=== PATIENT | male | born 1965 | race African-American/Black ===

== ENCOUNTER 2024-05-23 11:48 | Inpatient (IN) | payer BC, OTHER ==
[~2024-05-23] VITALS: Ht 180.3 cm; Wt 88.1 kg
[2024-05-23 12:15] VITALS: PULSE 114; RESP 38; O2SAT 100
[2024-05-23] MEDS: SODIUM CHLORIDE 0.9% 1,000 ML IV ONE ×2 (12:22→15:10)
[2024-05-23 12:24] LABS: Basophils # (auto) 0 10 ^3/uL (0-0.2); Basophils % (auto) 0.2 % (0.0-2.0); Eosinophils # (auto) 0 10 ^3/uL (0-0.8); Hemoglobin 9.2 g/dL (13.5-17.5); Lymphocytes # (auto) 0.7 10 ^3/uL (0.4-5.4); Monocytes # (auto) 1.1 10 ^3/uL (0-1.3); Red Blood Cells 3.16 10^6/uL (4.5-5.90)
[2024-05-23 12:25] LABS: Chloride 91 mmol/L (98-107); Hematocrit 31.3 % (41.0-53.0); Lymphocytes % (auto) 3.3 % (10.0-50.0); Mean Corpuscular Hgb Conc. 29.3 g/dL (32.0-36.0); Mean Corpuscular Volume 99.1 fL (80.0-100.0); Monocytes % (auto) 5.2 % (0.0-12.0); Neutrophils # (auto) 19.9 10 ^3/uL (1.6-8.6); Neutrophils % (auto) 91.3 % (37.0-80.0); Platelet Count (auto) 518 10^3/uL (140-450); Red Cell Distribution Width 15.6 % (11.8-14.3); Sodium 125 mmol/L (136-145); White Blood Cell 21.8 10^3/uL (4.4-10.8)
[2024-05-23 12:26] LABS: Anion Gap 24.00001 (5-15)
[2024-05-23] MEDS: InsuLIN REG 1unit/0.01ml Soln (100units/ml) IV ONE (12:26)
[2024-05-23 12:27] LABS: Calcium 9.1 mg/dL (8.7-10.4)
[2024-05-23 12:31] LABS: BUN/Creatinine Ratio 11.4 (10.0-20.0); Blood Urea Nitrogen 30 mg/dL (9-23)
[2024-05-23 12:33] LABS: Urine Bacteria None Seen /hpf (None Seen)
[2024-05-23] MEDS ORDERED: DEXTROSE (50%) 50ML SYRG IV PRN ×2 (12:45→17:00)
[2024-05-23 12:47] LABS: Carbon Dioxide < 10 mmol/L (20-30); Glucose 832 mg/dL (74-106); Potassium 7.3 mmol/L (3.5-5.1)
[2024-05-23 12:47] LABS: Urine Blood Negative /uL (Negative); Urine Clarity Clear (Clear); Urine Color Colorless (Yellow); Urine Protein, UAD TRACE (Negative); Urine Specific Gravity 1.019 (1.001-1.035); Urine Urobilinogen Normal (Negative); Urine WBC <1 /hpf (0 - 3)
[2024-05-23] MEDS: SODIUM CHLORIDE 0.9% 2,000 ML IV ONE (13:04)
[2024-05-23] MEDS: SODIUM BICARB 8.4% 50Meq/50ml SYR Vial IV ONE (13:06)
[2024-05-23] MEDS: INSULIN LANTUS (GLARGINE) 1 /0.01ml (100units/ml) SC ONE ×2 (13:06→17:00)
[2024-05-23] MEDS: FUROSEMIDE 40 MG/4 ML VIAL IV ONE (13:07)
[2024-05-23] MEDS: INSULIN DRIP 100 UNIT/100ML 100 ML IV SCH ×3 (13:30→22:23)
[2024-05-23] MEDS: ACCU-CHEK COMFORT CURVE STRIP VI SCH ×2 (13:30→17:54)
[2024-05-23 16:23] LABS: Base Excess -14.4 mmol/L (-2.0-3.0)
[2024-05-23] MEDS ORDERED: NITROGLYCERIN 0.4 MG SL TAB SL PRN (17:00)
[2024-05-23] MEDS ORDERED: SODIUM CHLORIDE 0.9% 1,000 ML IV SCH ×2 (17:00→21:00)
[2024-05-23] MEDS ORDERED: VANCOMYCIN PER PHARMACY 0 MG IV SCH (17:00)
[2024-05-23] MEDS ORDERED: DOCUSATE SOD 100 MG CAP PO PRN (17:00)
[2024-05-23 17:19] LABS: Chloride 99 mmol/L (98-107); Potassium 4.4 mmol/L (3.5-5.1)
[2024-05-23 17:20] LABS: Anion Gap 22 (5-15); Calcium 8.4 mg/dL (8.7-10.4); Carbon Dioxide 12 mmol/L (20-30)
[2024-05-23 17:25] LABS: Blood Urea Nitrogen 25 mg/dL (9-23)
[2024-05-23 17:32] LABS: Sodium 133 mmol/L (136-145)
[2024-05-23 17:36] LABS: Glucose 670 mg/dL (74-106)
[2024-05-23] MEDS: ENOXAPARIN SOD 40 MG/0.4 ML SYRINGE SC SCH (17:53)
[2024-05-23] MEDS: VANCOMYCIN 1GM/200ML 200 ML IV ONE (17:53)
[2024-05-23 17:55] LABS: % Iron Saturation 7.7 % (20-55)
[2024-05-23 17:57] LABS: Phosphorus 4.1 mg/dL (2.4-5.1)
[2024-05-23 18:38] LABS: Ferritin 345.6 ng/mL (22-322)
[2024-05-23 18:40] LABS: Erythrocyte Sedimentation Rate 109 mm/hr (0-20)
[2024-05-23 18:43] LABS: Lactic Acid w/Reflex 3.1 mmol/L (0.4-2.0)
[2024-05-23 19:54] VITALS: PULSE 99; RESP 20; O2SAT 96
[2024-05-23] MEDS: ONDANSETRON HCL 4 MG/2 ML VIAL IV PRN (20:28)
[2024-05-23] MEDS: CEFEPIME 2GM/50ML NS 50 ML IV SCH (22:09)
[2024-05-23] MEDS: SODIUM CHLORIDE 0.9% 1,000 ML IV SCH (23:05)
[2024-05-23 23:19] LABS: Chloride 106 mmol/L (98-107); Potassium 3.6 mmol/L (3.5-5.1); Sodium 139 mmol/L (136-145)
[2024-05-23 23:20] LABS: Anion Gap 6 (5-15); Carbon Dioxide 27 mmol/L (20-30)
[2024-05-23 23:21] LABS: Calcium 8.5 mg/dL (8.7-10.4)
[2024-05-23 23:25] LABS: BUN/Creatinine Ratio 11.9 (10.0-20.0); Blood Urea Nitrogen 24 mg/dL (9-23); Glucose 278 mg/dL (74-106)
[2024-05-24] MEDS: D5W/LACTATED RINGERS 1,000 ML IV ONE (01:50)
[2024-05-24 04:30] LABS: Lactic Acid w/Reflex 2.1 mmol/L (0.4-2.0)
[2024-05-24 05:00] LABS: Basophils # (auto) 0 10 ^3/uL (0-0.2); Basophils % (auto) 0.1 % (0.0-2.0); Eosinophils # (auto) 0 10 ^3/uL (0-0.8); Hematocrit 25.6 % (41.0-53.0); Hemoglobin 8.5 g/dL (13.5-17.5); Lymphocytes # (auto) 0.6 10 ^3/uL (0.4-5.4); Mean Corpuscular Hemoglobin 28.9 pg (28.0-32.0); Mean Corpuscular Hgb Conc. 33.2 g/dL (32.0-36.0); Monocytes # (auto) 1.1 10 ^3/uL (0-1.3); Monocytes % (auto) 7.1 % (0.0-12.0); Neutrophils # (auto) 14.2 10 ^3/uL (1.6-8.6); Neutrophils % (auto) 88.8 % (37.0-80.0); Platelet Count (auto) 434 10^3/uL (140-450); Red Blood Cells 2.94 10^6/uL (4.5-5.90); Red Cell Distribution Width 14.8 % (11.8-14.3)
[2024-05-24 05:09] LABS: Albumin 3.1 g/dL (3.2-4.8); Alkaline Phosphatase 68 U/L (46-116); Anion Gap 5 (5-15); Aspartate Aminotransferase 11 U/L (13-40); BUN/Creatinine Ratio 12.6 (10.0-20.0); Bilirubin, Total 0.3 mg/dL (0.2-1.0); Blood Urea Nitrogen 22 mg/dL (9-23); Calcium 8.7 mg/dL (8.7-10.4); Carbon Dioxide 28 mmol/L (20-30); Chloride 108 mmol/L (98-107); Glucose 207 mg/dL (74-106); Potassium 3.8 mmol/L (3.5-5.1); Sodium 141 mmol/L (136-145); Total Protein 6.9 g/dL (5.7-8.2)
[2024-05-24 05:12] LABS: Alanine Aminotransferase < 9 U/L (7-40)
[2024-05-24] MEDS ORDERED: DEXTROSE (50%) 50ML SYRG IV PRN (06:00)
[2024-05-24 07:35] VITALS: PULSE 88; RESP 18; O2SAT 97
[2024-05-24] MEDS: ACCU-CHEK COMFORT CURVE STRIP VI SCH (08:01)
[2024-05-24] MEDS: InsuLIN REG 1unit/0.01ml Soln (100units/ml) SC SCH (08:03)
[2024-05-24] MEDS: INSULIN LANTUS (GLARGINE) 1 /0.01ml (100units/ml) SC SCH (11:33)
[2024-05-24] MEDS: METOCLOPRAMIDE HCL 5MG/ml INJ 2ml VIAL IV ONE (11:37)
[2024-05-24 11:42] LABS: Chloride 108 mmol/L (98-107); Potassium 3.9 mmol/L (3.5-5.1); Sodium 140 mmol/L (136-145)
[2024-05-24 11:43] LABS: Anion Gap 3 (5-15); Calcium 8.6 mg/dL (8.7-10.4); Carbon Dioxide 29 mmol/L (20-30)
[2024-05-24 11:48] LABS: BUN/Creatinine Ratio 13.9 (10.0-20.0); Blood Urea Nitrogen 20 mg/dL (9-23); Glucose 241 mg/dL (74-106)
[2024-05-24] MEDS: MORPHINE SULFATE INJ 2 MG/ml SYRG IV PRN (12:34)
[2024-05-24 13:57] VITALS: BP 146/78; PULSE 112; RESP 19; TEMP 98.6; O2SAT 90
[2024-05-24 14:45] VITALS: BP 147/79; PULSE 110; RESP 16; TEMP 98; O2SAT 90; O2SAT 92
[2024-05-24 16:44] VITALS: BP 143/83; PULSE 109; RESP 16; TEMP 98.1; O2SAT 98
[2024-05-24] MEDS: VANCOMYCIN 1GM/200ML 200 ML IV SCH (17:00)
[2024-05-24 21:00] VITALS: BP 117/73; PULSE 95; RESP 20; TEMP 99.2; O2SAT 96
[2024-05-25] VITALS (8 sets, daily range): BP systolic 116–159; BP diastolic 73–94; PULSE 86–117; RESP 18–20; TEMP 98.3–99.3; O2SAT 92–100
[2024-05-25 07:08] LABS: Basophils # (auto) 0 10 ^3/uL (0-0.2); Eosinophils # (auto) 0 10 ^3/uL (0-0.8); Eosinophils % (auto) 0.4 % (0.0-7.0); Hemoglobin 8.2 g/dL (13.5-17.5); Monocytes # (auto) 0.9 10 ^3/uL (0-1.3); Monocytes % (auto) 7.6 % (0.0-12.0); Neutrophils # (auto) 9.5 10 ^3/uL (1.6-8.6); Neutrophils % (auto) 83.1 % (37.0-80.0)
[2024-05-25 07:11] LABS: Basophils % (auto) 0.1 % (0.0-2.0); Hematocrit 24.4 % (41.0-53.0); Lymphocytes % (auto) 8.8 % (10.0-50.0); Mean Corpuscular Hemoglobin 29.4 pg (28.0-32.0); Mean Corpuscular Hgb Conc. 33.7 g/dL (32.0-36.0); Mean Corpuscular Volume 87.3 fL (80.0-100.0); Platelet Count (auto) 415 10^3/uL (140-450); Red Cell Distribution Width 14.9 % (11.8-14.3); White Blood Cell 11.4 10^3/uL (4.4-10.8)
[2024-05-25] MEDS: CEFEPIME 2GM/50ML NS 50 ML IV SCH (19:22)
[2024-05-26] VITALS (9 sets, daily range): BP systolic 135–160; BP diastolic 65–89; PULSE 11–117; RESP 16–19; TEMP 97.8–100.3; O2SAT 94–100
[2024-05-26 06:36] LABS: Anion Gap 3 (5-15); Carbon Dioxide 33 mmol/L (20-30); Chloride 101 mmol/L (98-107); Potassium 3.2 mmol/L (3.5-5.1); Sodium 137 mmol/L (136-145)
[2024-05-26 06:38] LABS: Calcium 8.7 mg/dL (8.7-10.4)
[2024-05-26 06:42] LABS: BUN/Creatinine Ratio 7.6 (10.0-20.0)
[2024-05-26 06:46] LABS: Blood Urea Nitrogen 7 mg/dL (9-23); Glucose 121 mg/dL (74-106)
[2024-05-26 06:54] LABS: Basophils # (auto) 0 10 ^3/uL (0-0.2); Basophils % (auto) 0.2 % (0.0-2.0); Eosinophils # (auto) 0 10 ^3/uL (0-0.8); Eosinophils % (auto) 0.3 % (0.0-7.0); Lymphocytes # (auto) 0.9 10 ^3/uL (0.4-5.4); Monocytes # (auto) 0.7 10 ^3/uL (0-1.3)
[2024-05-26 06:56] LABS: Hematocrit 26.6 % (41.0-53.0); Lymphocytes % (auto) 7.3 % (10.0-50.0); Mean Corpuscular Hemoglobin 29.2 pg (28.0-32.0); Mean Corpuscular Hgb Conc. 33.7 g/dL (32.0-36.0); Mean Corpuscular Volume 86.5 fL (80.0-100.0); Monocytes % (auto) 5.9 % (0.0-12.0); Neutrophils # (auto) 10.3 10 ^3/uL (1.6-8.6); Neutrophils % (auto) 86.3 % (37.0-80.0); Platelet Count (auto) 468 10^3/uL (140-450); Red Blood Cells 3.07 10^6/uL (4.5-5.90); Red Cell Distribution Width 14.6 % (11.8-14.3); White Blood Cell 11.9 10^3/uL (4.4-10.8)
[2024-05-26] MEDS: POTASSIUM CHL 20 Meq TABLET PO ONE (10:09)
[2024-05-26] MEDS ORDERED: HYDROcodone-ACET 5/325MG TAB PO PRN (10:30)
[2024-05-26 10:34] LABS: Folate (Folic Acid) 9.34 ng/mL (>5.38)
[2024-05-26] MEDS ORDERED: DEXTROSE (50%) 50ML SYRG IV PRN (11:00)
[2024-05-26] MEDS: ACCU-CHEK COMFORT CURVE STRIP VI SCH (11:30)
[2024-05-26] MEDS: ACETAMINOPHEN 325 MG TAB PO PRN (11:52)
[2024-05-26] MEDS: PANTOPRAZOLE 40 MG/10 ML VIAL INJ IV ONE (11:53)
[2024-05-26] MEDS: Glucerna Carbsteady SHAKE Vanilla 8oz PO SCH (12:00)
[2024-05-26] MEDS: InsuLIN REG 1unit/0.01ml Soln (100units/ml) SC SCH ×2 (12:22→21:00)
[2024-05-27] VITALS (8 sets, daily range): BP systolic 100–147; BP diastolic 57–88; PULSE 94–107; RESP 12–19; TEMP 98.6–99.6; O2SAT 93–99
[2024-05-27 07:37] LABS: Basophils # (auto) 0 10 ^3/uL (0-0.2); Basophils % (auto) 0.2 % (0.0-2.0); Eosinophils # (auto) 0 10 ^3/uL (0-0.8); Eosinophils % (auto) 0.4 % (0.0-7.0); Hematocrit 26.2 % (41.0-53.0); Hemoglobin 8.7 g/dL (13.5-17.5); Lymphocytes # (auto) 0.9 10 ^3/uL (0.4-5.4); Lymphocytes % (auto) 6.3 % (10.0-50.0); Mean Corpuscular Hgb Conc. 33.1 g/dL (32.0-36.0); Mean Corpuscular Volume 87.5 fL (80.0-100.0); Monocytes # (auto) 1.2 10 ^3/uL (0-1.3); Monocytes % (auto) 8.8 % (0.0-12.0); Neutrophils # (auto) 11.8 10 ^3/uL (1.6-8.6); Neutrophils % (auto) 84.3 % (37.0-80.0); Platelet Count (auto) 378 10^3/uL (140-450); Red Blood Cells 2.99 10^6/uL (4.5-5.90); Red Cell Distribution Width 14.6 % (11.8-14.3)
[2024-05-27 07:54] LABS: Albumin 2.9 g/dL (3.2-4.8); Alkaline Phosphatase 81 U/L (46-116); Anion Gap 7 (5-15); Aspartate Aminotransferase 9 U/L (13-40); BUN/Creatinine Ratio 9.8 (10.0-20.0); Blood Urea Nitrogen 10 mg/dL (9-23); Calcium 8.6 mg/dL (8.7-10.4); Carbon Dioxide 28 mmol/L (20-30); Chloride 99 mmol/L (98-107); Cholesterol 93 mg/dL (< 200); Glucose 164 mg/dL (74-106); HDL Cholesterol 25 mg/dL (40-59); LDL Cholesterol 43 mg/dL (< 100); Magnesium 1.5 mg/dL (1.6-2.6); Potassium 3.4 mmol/L (3.5-5.1); Sodium 134 mmol/L (136-145); Triglycerides 87 mg/dL (< 150)
[2024-05-27 07:55] LABS: Alanine Aminotransferase < 9 U/L (7-40); Bilirubin, Total 0.6 mg/dL (0.2-1.0); Total Protein 6.7 g/dL (5.7-8.2)
[2024-05-27] MEDS: PANTOPRAZOLE 40 MG/10 ML VIAL INJ IV SCH (09:10)
[2024-05-27] MEDS ORDERED: fentaNYL CITRATE 100 MCG/2 ML VL IV PRN (12:00)
[2024-05-27] MEDS ORDERED: MORPHINE SULFATE INJ 2 MG/ml SYRG IV PRN (12:00)
[2024-05-27] MEDS ORDERED: HYDROmorphone HCL 2 MG/ML VL/or syr IV PRN ×2 (12:00)
[2024-05-27] MEDS ORDERED: KETAMINE 50mg/ML 10ml Vial 10 ML ONE (12:37)
[2024-05-27] MEDS ORDERED: MEPERIDINE HCL (50 MG/ML) 1 ML VIAL ONE (12:37)
[2024-05-27] MEDS ORDERED: fentaNYL CITRATE 100 MCG/2 ML VL ONE (12:37)
[2024-05-27] MEDS ORDERED: LIDOCAINE 1% INJ PF 5ML AMP ONE (12:37)
[2024-05-27] MEDS ORDERED: SODIUM CHLORIDE LOCK 10 ML ONE (12:37)
[2024-05-27] MEDS ORDERED: ONDANSETRON HCL 4 MG/2 ML VIAL ONE (12:37)
[2024-05-27] MEDS ORDERED: PROPOFOL 10 MG/ML 20 ML IV ONE (12:37)
[2024-05-27] MEDS ORDERED: MIDAZOLAM HCL 2MG/2ML 2ml VIAL (1mg/ml) ONE (12:37)
[2024-05-27] MEDS: VANCOMYCIN HCL 1000 MG VL XX ONE (13:15)
[2024-05-28] VITALS (7 sets, daily range): BP systolic 115–129; BP diastolic 68–82; PULSE 89–100; RESP 16–20; TEMP 98.3–99.8; O2SAT 96–97
[2024-05-28 12:48] LABS: Potassium 3.5 mmol/L (3.5-5.1)
[2024-05-28 12:50] LABS: Calcium 8.5 mg/dL (8.7-10.4)
[2024-05-28 12:55] LABS: BUN/Creatinine Ratio 11.4 (10.0-20.0)
[2024-05-28 12:56] LABS: Albumin 2.8 g/dL (3.2-4.8)
[2024-05-28 12:57] LABS: Phosphorus 1.8 mg/dL (2.4-5.1)
[2024-05-29] VITALS (8 sets, daily range): BP systolic 115–151; BP diastolic 61–86; PULSE 81–112; RESP 15–20; TEMP 97.7–98.6; O2SAT 95–100
[2024-05-29 04:36] LABS: Potassium 3.3 mmol/L (3.5-5.1)
[2024-05-29 04:37] LABS: Calcium 8.4 mg/dL (8.7-10.4)
[2024-05-29 04:42] LABS: BUN/Creatinine Ratio 10.3 (10.0-20.0)
[2024-05-29 04:44] LABS: Albumin 2.8 g/dL (3.2-4.8); Phosphorus 2.6 mg/dL (2.4-5.1)
[2024-05-29] MEDS ORDERED: MIDAZOLAM HCL 2MG/2ML 2ml VIAL (1mg/ml) ONE (14:11)
[2024-05-29] MEDS ORDERED: fentaNYL CITRATE 100 MCG/2 ML VL ONE (14:11)
[2024-05-29] MEDS ORDERED: HYDROmorphone HCL 2 MG/ML VL/or syr IV PRN (14:15)
[2024-05-29] MEDS: ONDANSETRON HCL 4 MG/2 ML VIAL IV ONE (14:15)
[2024-05-29] MEDS: BUPIVACAINE HCL 50 ML ONE (14:22)
[2024-05-29] MEDS ORDERED: PROPOFOL 10 MG/ML 20 ML IV ONE (14:39)
[2024-05-29] MEDS ORDERED: ONDANSETRON HCL 4 MG/2 ML VIAL ONE (14:39)
[2024-05-30] VITALS (8 sets, daily range): BP systolic 95–145; BP diastolic 51–94; PULSE 91–105; RESP 16–19; TEMP 97.7–98.3; O2SAT 97–100
[2024-05-31] VITALS (9 sets, daily range): BP systolic 99–133; BP diastolic 53–73; PULSE 91–104; RESP 16–19; TEMP 97.8–98.9; O2SAT 97–100
[2024-05-31] MEDS: ACCU-CHEK COMFORT CURVE STRIP VI ONE (11:45)
[2024-06-01] VITALS (9 sets, daily range): BP systolic 98–137; BP diastolic 52–84; PULSE 88–100; RESP 16–18; TEMP 97.8–98.6; O2SAT 96–100
[2024-06-01 06:58] LABS: Hemoglobin 7.2 g/dL (13.5-17.5)
[2024-06-01 07:01] LABS: Hematocrit 21.1 % (41.0-53.0); Mean Corpuscular Hemoglobin 29.4 pg (28.0-32.0); Mean Corpuscular Hgb Conc. 34.2 g/dL (32.0-36.0); Mean Corpuscular Volume 85.9 fL (80.0-100.0); Platelet Count (auto) 433 10^3/uL (140-450); Red Blood Cells 2.45 10^6/uL (4.5-5.90); Red Cell Distribution Width 14.9 % (11.8-14.3)
[2024-06-01 07:15] LABS: Basophils % (manual) 0 (0.0-2.0); Blast Cells 0; Myelocytes % 0; Promyelocytes % 0; Reactive Lymphocytes 0
[2024-06-01 08:39] LABS: Anisocytosis Slight; Band Neutrophils % (manual) 3; Eosinophils % (manual) 2 (0-7); Lymphocytes % (manual) 21 (10.0-50.0); Metamyelocytes % 1; Monocytes % (manual) 10 (0-12); Platelet Estimate Adequate
[2024-06-01] MEDS ORDERED: GLYCOPYRROLATE 0.2 MG/ML 1ML VIAL ONE (11:04)
[2024-06-01] MEDS ORDERED: PROPOFOL 10 MG/ML 20 ML IV ONE ×2 (11:04→12:43)
[2024-06-01] MEDS ORDERED: KETOROLAC TROMETH 30 MG/ML 1ML VIAL IV ONE (12:02)
[2024-06-01] MEDS ORDERED: KETAMINE 50mg/ML 10ml Vial 10 ML ONE (12:18)
[2024-06-01] MEDS: BUPIVACAINE HCL 50 ML ONE (12:35)
[2024-06-01] MEDS: VANCOMYCIN HCL 1000 MG VL ONE ×2 (12:51→12:58)
[2024-06-01] MEDS ORDERED: HYDROmorphone HCL 2 MG/ML VL/or syr IV PRN (13:15)
[2024-06-01] MEDS ORDERED: ePHEDrine SULFATE 50 MG/ML AMP IV PRN (13:15)
[2024-06-01] MEDS ORDERED: fentaNYL CITRATE 100 MCG/2 ML VL IV PRN (13:15)
[2024-06-01] MEDS ORDERED: hydrALAZINE HCL 20 MG/ML VL IV PRN (13:15)
[2024-06-01] MEDS ORDERED: FLUMAZENIL 0.1 MG/ML INJ 10ML MDV IV PRN (13:15)
[2024-06-01] MEDS ORDERED: ONDANSETRON HCL 4 MG/2 ML VIAL IV PRN (13:15)
[2024-06-01] MEDS ORDERED: NALOXONE HCL 0.4 MG/ML VIAL IV PRN (13:15)
[2024-06-01] MEDS: AMPICILLIN & SULBACTAM SODIUM 3 GM in SODIUM CHL 0.9% 100 ML IV SCH (17:33)
[2024-06-02 00:49] VITALS: BP 120/77; PULSE 92; RESP 18; TEMP 97.8; O2SAT 98
[2024-06-02 05:00] VITALS: BP 139/81; PULSE 96; RESP 18; TEMP 98.1; O2SAT 99
[2024-06-02] MEDS: METOCLOPRAMIDE HCL 5MG/ml INJ 2ml VIAL IV ONE (07:56)
[2024-06-02] MEDS: BUPIVACAINE 0.5% P/F INJ 10 ML VIAL ONE (07:56)
[2024-06-02] MEDS: VANCOMYCIN HCL 1000 MG VL ONE (07:57)
[2024-06-02 08:00] VITALS: PULSE 86; PULSE 93; RESP 14; O2SAT 99
[2024-06-02 09:00] VITALS: BP 141/89; PULSE 86; RESP 14; TEMP 98.2; O2SAT 99
[2024-06-02] MEDS ORDERED: AUG875T PO (11:40)
[2024-06-02] MEDS ORDERED: [UNRECOGNIZED DRUG - CODE] VI (11:45)
[2024-06-02 13:00] VITALS: BP 125/71; PULSE 71; RESP 6; TEMP 98.3; O2SAT 98
[2024-06-02 14:10] VITALS: BP 141/89; PULSE 86; RESP 14; TEMP 98.2; O2SAT 99
== END 2024-06-02 14:45 | disposition home or self-care (01) | DRG 853 ==
LOC: EDBD 11:48 → ER 11:48 → TELE 16:57 → TELE-CENTR 05-24 13:24
PROVIDERS: ADMIT Nurse Practitioner Family; ATTEND Internal Medicine Geriatric Medicine
PROC: 0J9N0ZZ Drainage of Right Lower Leg Subcutaneous Tissue and Fascia, Open Approach (ICD-10-PCS; 2024-05-27)
PROC: 0Q9N0ZZ Drainage of Right Metatarsal, Open Approach (ICD-10-PCS; principal; 2024-05-27 12:42)
PROC: 0Q9N0ZZ Drainage of Right Metatarsal, Open Approach (ICD-10-PCS; 2024-05-29)
PROC: 0J9N0ZZ Drainage of Right Lower Leg Subcutaneous Tissue and Fascia, Open Approach (ICD-10-PCS; 2024-05-29)
PROC: 0Q9N0ZZ Drainage of Right Metatarsal, Open Approach (ICD-10-PCS; 2024-06-01)
PROC: 0J9N0ZZ Drainage of Right Lower Leg Subcutaneous Tissue and Fascia, Open Approach (ICD-10-PCS; 2024-06-01)
DX: A41.9 Sepsis, unspecified organism (principal); E11.11 Type 2 diabetes mellitus with ketoacidosis with coma; N17.0 Acute kidney failure with tubular necrosis; M72.6 Necrotizing fasciitis; L02.611 Cutaneous abscess of right foot; E87.1 Hypo-osmolality and hyponatremia; L97.419 Non-pressure chronic ulcer of right heel and midfoot with unspecified severity; E86.0 Dehydration; D64.9 Anemia, unspecified; D69.59 Other secondary thrombocytopenia; E87.5 Hyperkalemia; E11.621 Type 2 diabetes mellitus with foot ulcer; E87.6 Hypokalemia; F17.210 Nicotine dependence, cigarettes, uncomplicated; S91.301A Unspecified open wound, right foot, initial encounter; X58.XXXA Exposure to other specified factors, initial encounter; I10 Essential (primary) hypertension; L97.519 Non-pressure chronic ulcer of other part of right foot with unspecified severity; Z79.4 Long term (current) use of insulin; Y93.89 Activity, other specified; Y92.89 Other specified places as the place of occurrence of the external cause; Y99.8 Other external cause status
CPT/HCPCS: 36415; 36600; 71045; 73630; 73718; 80048; 80053; 80061; 80069; 80202; 81001; 82010; 82565; 82607; 82728; 82746; 82805; 82962; 83036; 83540; 83550; 83605; 83615; 83735; 83930; 83935; 84100; 84300; 84484; 85007; 85025; 85027; 85045; 85048; 85652; 86141; 86850; 86900; 86901; 87040; 87070; 87075; 87076; 87077; 87186; 87205; 93005; 93971; 99291; G0378; J0692; J1100; J1815; J1885; J2250; J2405; J2470; J2704; J3490